=== PATIENT | female | born 1990 | race American Indian/Alaskan Native ===

== ENCOUNTER 2016-10-11 08:52 | Emergency (ER) | payer BC ==
[2016-10-11 09:04] VITALS: BMI 22.4
[2016-10-11 09:05] VITALS: BP 121/89; PULSE 82; RESP 16; TEMP 98.3; O2SAT 100
--- NOTE | 2016-10-11 09:26 | ED PDOC ---
Arrival/HPI - General Chief Complaint: Abdominal Pain Time Seen by Provider: 10/11/16 09:12 Historian: Patient - History of Present Illness Narrative History of Present Illness (Text): 10/11/16 09:17 Martina Navarro is a 26 year old female complaining of intermittent right-sided abdominal pain for two weeks. Patient states that she also experiences associated lightheadedness and nausea. Patient denies any vomiting, diarrhea, back pain, urinary symptoms, or any other complaint at this time. Patient endorses that her last normal period was the beginning of last month. PMD: None Time/Duration: > week (2 weeks) Symptom Onset: Gradual Symptom Course: Unchanged Severity Level: Mild Activities at Onset: Light Context: Home Associated Symptoms (Text): 10/11/16 11:58 Two-week history of intermittent right lower quadrant and right groin pain. There's been some nausea but no vomiting or diarrhea. No dysuria frequency urgency or hematuria. Last normal menstrual period was September 05. She states she has had some very light intermittent bleeding since then. Sexually active with no control. No vaginal discharge or bleeding. No low back pain. No fever or chills. No injury or trauma. Past Medical History - Provider Review Nursing Documentation Reviewed: Yes - Cardiac Hx Cardiac Disorders: No - Pulmonary Hx Respiratory Disorders: Yes Hx Asthma: Yes - Neurological Hx Neurological Disorder: No - HEENT Hx HEENT Disorder: No - Renal Hx Renal Disorder: No - Endocrine/Metabolic Hx Endocrine Disorders: No - Hematological/Oncological Hx Blood Disorders: No - Integumentary Hx Dermatological Disorder: No - Musculoskeletal/Rheumatological Hx Musculoskeletal Disorders: No - Gastrointestinal Hx Gastrointestinal Disorders: No - Genitourinary/Gynecological Hx Genitourinary Disorders: No - Psychiatric Hx Psychophysiologic Disorder: No Hx Substance Use: No Family/Social History - Physician Review Nursing Documentation Reviewed: Yes Family/Social History: No Known Family HX Smoking Status: Never Smoked Hx Alcohol Use: No Hx Substance Use: No Allergies/Home Meds Allergies/Adverse Reactions: Allergies tomato Allergy (Verified 10/11/16 09:04) RASH Review of Systems - Physician Review All systems were reviewed & negative as marked: Yes - Review of Systems Constitutional: absent: Fatigue, Fevers, Night Sweats Eyes: absent: Vision Changes ENT: absent: Hearing Changes Respiratory: absent: SOB Cardiovascular: absent: Chest Pain Gastrointestinal: Abdominal Pain, Nausea. absent: Constipation, Diarrhea, Vomiting Genitourinary Female: absent: Dysuria, Frequency, Hematuria, Urine Output Changes, Vaginal Discharge Musculoskeletal: absent: Back Pain, Neck Pain Skin: absent: Rash Neurological: absent: Headache, Dizziness, Focal Weakness Endocrine: absent: Polydipsia Hemo/Lymphatic: absent: Easy Bleeding Psychiatric: absent: Depression Physical Exam Vital Signs Reviewed: Yes Vital Signs Temp Pulse Resp BP Pulse Ox 10/11/16 09:05 98.3 F 82 16 121/89 100 Temperature: Afebrile Blood Pressure: Normal Pulse: Regular Respiratory Rate: Normal Appearance: Positive for: Well-Appearing, Non-Toxic, Comfortable Pain Distress: None Mental Status: Positive for: Alert and Oriented X 3 - Systems Exam Head: Present: Atraumatic, Normocephalic Pupils: Present: PERRL Extroacular Muscles: Present: EOMI Conjunctiva: Present: Normal Mouth: Present: Moist Mucous Membranes Pharnyx: No: ERYTHEMA, EXUDATE, TONSILS ENLARGED Neck: Present: Normal Range of Motion Respiratory/Chest: Present: Clear to Auscultation, Good Air Exchange. No: Respiratory Distress, Accessory Muscle Use Cardiovascular: Present: Regular Rate and Rhythm, Normal S1, S2. No: Murmurs Abdomen: Present: Tenderness (Mild RLQ tenderness), Normal Bowel Sounds. No: Distention, Peritoneal Signs, Rebound, Guarding Back: Present: Normal Inspection. No: CVA Tenderness Upper Extremity: Present: Normal Inspection. No: Cyanosis, Edema Lower Extremity: Present: Normal Inspection. No: Edema Neurological: Present: GCS=15, CN II-XII Intact, Speech Normal, Motor Func Grossly Intact Skin: Present: Warm, Dry, Normal Color. No: Rashes Psychiatric: Present: Alert, Oriented x 3, Normal Insight, Normal Concentration Medical Decision Making ED Course and Treatment: 10/11/16 09:17 Impression: 26 year old female complaining of intermittent right-sided abdominal pain for two weeks. Plan: -- Urinalysis -- Labs -- Zofran, Toradol, and IV Fluids -- Reassess and disposition Progress Notes: 10/11/16 12:28 Transvaginal ultrasound as read by the radiologist shows no acute findings. Ultrasound of the abdomen as read by the radiologist shows no evidence of appendicitis. 10/11/16 12:34 Symptoms improved. - Lab Interpretations Lab Results: 10/11/16 09:47 10/11/16 09:47 Lab Results 10/11/16 09:47: WBC 7.2, RBC 4.68, Hgb 14.2, Hct 42.3, MCV 90.4, MCH 30.3, MCHC 33.6, RDW 13.4, Plt Count 369, MPV 9.4, Gran % 53.5, Lymph % (Auto) 39.5 H, [place] % (Auto) 5.5, Eos % (Auto) 1.1 L, Baso % (Auto) 0.4, Gran # 3.85, Lymph # 2.9, [place] # 0.4, Eos # 0.1, Baso # 0.03, Sodium 140, Potassium 3.6, Chloride 102 , Carbon Dioxide 27, Anion Gap 15, BUN 12, Creatinine 0.7, Est GFR ( Amer ) > 60, Est GFR (Non-Af Amer) > 60, Random Glucose 100, Calcium 9.4, Total Bilirubin 0.8, AST 24, ALT 37, Alkaline Phosphatase 79, Total Protein 8.6 H, Albumin 4.5, Globulin 4.1, Albumin/Globulin Ratio 1.1, Lipase 108, Urine Color Yellow, Urine Appearance Sl cloudy, Urine pH 6.0, Ur Specific [place] >= 1.030, Urine Protein 30 H, Urine Glucose (UA) Negative, Urine Ketones Negative, Urine Blood Trace-intact H, Urine Nitrate Negative, Urine Bilirubin Negative, Urine Urobilinogen 1.0 H, Ur Leukocyte Esterase Trace H, Urine RBC 0 - 2, Urine WBC 2 - 5, Ur Epithelial Cells 4 - 5, Urine Bacteria Mod, Urine HCG, Qual Negative I have reviewed the lab results: Yes - RAD Interpretation Radiology Orders: 10/11/16 09:33 PELVIS ULTRASOUND [US] Routine 10/11/16 10:08 ABDOMEN LIMITED [US] Stat 10/11/16 10:09 TRANSVAGINAL [US] Stat - Medication Orders Current Medication Orders: Discontinued Medications Sodium Chloride (Sodium Chloride 0.9%) 1,000 mls @ 1,000 mls/hr IV .Q1H STA Stop: 10/11/16 10:32 Last Admin: 10/11/16 09:49 Dose: 1,000 MLS/HR eMAR Start Stop Document 10/11/16 09:49 SE (Rec: 10/11/16 09:49 SE [id number]) Intravenous Solution Start Date 10/11/16 Start Time 09:49 Ketorolac Tromethamine (Toradol) 30 mg IVP STAT STA Stop: 10/11/16 09:34 Last Admin: 10/11/16 09:45 Dose: 30 MG IVP Administration Document 10/11/16 09:45 SE (Rec: 10/11/16 09:45 SE [id number]) Charges for Administration # of IVP Administrations 1 Ondansetron HCl (Zofran Inj) 4 mg IVP STAT STA Stop: 10/11/16 09:34 Last Admin: 10/11/16 09:45 Dose: 4 MG IVP Administration Document 10/11/16 09:45 SE (Rec: 10/11/16 09:45 SE [id number]) Charges for Administration # of IVP Administrations 1 - Scribe Statement The provider has reviewed the documentation as recorded by the Bert Wood Provider Scribe Attestation: All medical record entries made by the Kadieibtosha were at my direction and personally dictated by me. I have reviewed the chart and agree that the record accurately reflects my personal performance of the history, physical exam, medical decision making, and the department course for this patient. I have also personally directed, reviewed, and agree with the discharge instructions and disposition. Disposition/Present on Arrival - Present on Arrival Any Indicators Present on Arrival: No History of DVT/PE: No History of Uncontrolled Diabetes: No Urinary Catheter: No History of Decub. Ulcer: No History Surgical Site Infection Following: None - Disposition Have Diagnosis and Disposition been Completed?: Yes Diagnosis: Abdominal pain, Dysmenorrhea Disposition: HOME/ ROUTINE Disposition Time: 12:29 Patient Plan: Discharge Patient Problems: Current Active Problems Problem Status Diagnosed Abdominal pain Acute Dysmenorrhea Acute Condition: IMPROVED Discharge Instructions (ExitCare): Dysmenorrhea (ED), Acute Abdominal Pain (ED) Additional Instructions: Follow-up with PMD and [facility]. Follow up in ER as needed. Prescriptions: Naproxen [Naprosyn] 500 mg PO BID #14 tab Referrals: PCP,NO [Primary Care Provider] - Follow up with primary
[2016-10-11] MEDS ORDERED: Sodium Chloride 0.9% 1,000 ML IV STA (09:33)
[2016-10-11 09:49] LABS: ADD MANUAL DIFF? NO
[2016-10-11 09:54] LABS: BASO # 0.03 K/mm3 (0.0-2.0); BASO % 0.4 % (0.0-3.0); EOS # 0.1 (0.0-0.7); EOS % 1.1 % (1.5-5.0); GRAN # 3.85 (1.4-6.5); GRAN % 53.5 % (50.0-68.0); HEMATOCRIT 42.3 % (36.0-48.0); LYMPH # 2.9 (1.2-3.4); LYMPH % 39.5 % (22.0-35.0); MEAN CELL VOLUME 90.4 fL (80.0-105.0); MEAN CORPUSCULAR HEMOGLOBIN 30.3 pg (25.0-35.0); MEAN CORPUSCULAR HGB CONC 33.6 g/dl (31.0-37.0); MEAN PLATELET VOLUME 9.4 fl (7.0-11.0); MONO # 0.4 (0.1-0.6); MONO % 5.5 % (1.0-6.0); PLATELET COUNT 369 10^3/uL (120.0-450.0); RED CELL DISTRIBUTION WIDTH 13.4 % (11.5-14.5); WHITE BLOOD COUNT 7.2 10^3/ul (4.5-11.0)
[2016-10-11 09:55] LABS: URINE BILIRUBIN NEGATIVE (NEGATIVE); URINE BLOOD TRACE-INTACT (NEGATIVE); URINE COLOR YELLOW (YELLOW); URINE GLUCOSE (UA) NEGATIVE (NEGATIVE); URINE KETONE NEGATIVE (NEGATIVE); URINE LEUKOCYTE ESTERASE TRACE Leu/uL (NEGATIVE); URINE PROTEIN 30 mg/dL (<30 mg/dL)
[2016-10-11 10:00] LABS: ALB/GLOB RATIO 1.1 (1.1-1.8); ALKALINE PHOSPHATASE 79 U/L (38-133); ALT/SGPT 37 U/L (7-56); AST/SGOT 24 U/L (15-39); BILIRUBIN,TOTAL 0.8 mg/dL (0.2-1.3); BLOOD UREA NITROGEN 12 mg/dL (7-21); CALCIUM 9.4 mg/dL (8.4-10.5); CARBON DIOXIDE 27 mmol/L (21-33); CHLORIDE 102 mmol/L (98-107); GFR AFRICAN-AMERICAN > 60; GLUCOSE,RANDOM 100 mg/dL (70-110); LIPASE 108 U/L (23-300); POTASSIUM 3.6 mmol/L (3.6-5.0); SODIUM 140 mmol/L (132-148); TOTAL PROTEIN 8.6 g/dL (5.8-8.3)
[2016-10-11 10:10] LABS: URINE APPEARANCE SL CLOUDY (CLEAR)
[2016-10-11 10:13] LABS: URINE BACTERIA MOD (NEG); URINE RBC 0 - 2 /hpf (0-2)
--- NOTE | 2016-10-11 12:20 | US ---
PROCEDURE: Limited abdomen HISTORY: R/O AP COMPARISON: TECHNIQUE: Ultrasound of the right lower quadrant was performed rule out appendicitis FINDINGS: Normal bowel loops are seen in this area with peristalsis. There is no evidence of a distended appendix IMPRESSION: Negative study
--- NOTE | 2016-10-11 12:22 | US ---
HISTORY: right ovarian cyst COMPARISON: None available. TECHNIQUE: FINDINGS: UTERUS: Measures 9.8 x 4.2 x 5.3 cm. Normal in size and appearance. No fibroid or other mass lesion seen. ENDOMETRIUM: Measures 5 mm in diameter. Unremarkable. CERVIX: No cervical abnormality identified. RIGHT OVARY: Measures 3.1 x 2.7 x 2.0 cm. No solid mass. Normal flow. LEFT OVARY: Measures 2.7 x 1.9 x 1.8 cm. No solid mass. Normal flow. There is a 1 cm simple cyst FREE FLUID: No significant free fluid noted. OTHER FINDINGS: None. IMPRESSION: Unremarkable pelvic ultrasound.
--- NOTE | 2016-10-13 13:33 | US ---
HISTORY: RLQ pain, R/O appendicitis, ovarian cyst. COMPARISON: None available. TECHNIQUE: Transabdominal and transvaginal pelvic ultrasound was performed. FINDINGS: UTERUS: Measures 9.8 x 4.2 x 5.3 cm. Anteverted, normal in size and appearance. No fibroid or other mass lesion seen. ENDOMETRIUM: Measures 5.1 mm in diameter. Normal in appearance. CERVIX: No cervical abnormality identified. RIGHT OVARY: Measures 3.1 x 2.7 x 2.0 cm. No solid mass. Normal flow. LEFT OVARY: Measures 2.7 x 1.9 x 1.8 cm. No solid mass. Normal flow. FREE FLUID: No significant free fluid noted. OTHER FINDINGS: None. IMPRESSION: Normal pelvic ultrasound.
== END 2016-10-11 12:36 | disposition home or self-care (01) ==
LOC: ED 08:52
DX: N94.6 Dysmenorrhea, unspecified (principal); R10.9 Unspecified abdominal pain
CPT/HCPCS: 76705; 76830; 76856; 80053; 81001; 83690; 84703; 85025; 87086; 96374; 96375; 99285; J1885; J2405; J7040

== ENCOUNTER 2017-07-18 22:33 | Emergency (ER) | payer BC ==
[2017-07-18 22:33] VITALS: BMI 22.4
[2017-07-18 23:10] VITALS: TEMP 97.9
[2017-07-18] MEDS ORDERED: Sodium Chloride 0.9% 1,000 ML IV STA (23:29)
[2017-07-19 01:34] LABS: BASO # 0.01 K/mm3 (0.0-2.0); BASO % 0.1 % (0.0-3.0); EOS % 0.1 % (1.5-5.0); GRAN # 11.6 (1.4-6.5); GRAN % 83.3 % (50.0-68.0); HEMOGLOBIN 12.7 g/dL (12.0-16.0); LYMPH # 1.3 (1.2-3.4); LYMPH % 9.1 % (22.0-35.0); MEAN CELL VOLUME 90.3 fl (80.0-105.0); MEAN CORPUSCULAR HGB CONC 33.2 g/dl (31.0-37.0); MEAN PLATELET VOLUME 9.5 fl (7.0-11.0); MONO % 7.4 % (1.0-6.0); RBC 4.23 10^6/uL (3.5-6.1); RED CELL DISTRIBUTION WIDTH 13.7 % (11.5-14.5); WHITE BLOOD COUNT 13.9 10^3/ul (4.5-11.0)
[2017-07-19 01:43] LABS: ALB/GLOB RATIO 1.3 (1.1-1.8); ALT/SGPT 27 U/L (7-56); AST/SGOT 25 U/L (14-36); BLOOD UREA NITROGEN 10 mg/dL (7-21); CALCIUM 8.9 mg/dL (8.4-10.5); GFR AFRICAN-AMERICAN > 60; GFR NON-AFRICAN AMERICAN > 60; LIPASE 42 U/L (23-300)
--- NOTE | 2017-07-19 01:43 | ED PDOC ---
Arrival/HPI - General Historian: Patient - General Chief Complaint: Abdominal Pain Time Seen by Provider: 07/18/17 23:29 - History of Present Illness Narrative History of Present Illness (Text): 07/19/17 01:40 27yo female who present with complaint of abdominal pain, headache and dizziness. The patient states abdominal pain started few days ago and headache and dizziness started today. She notes previous history of similar headache. states her LMP was July 04. Denies nausea, vomiting, diarrhea, constipation, focal weakness, sick contact, urinary symptoms, back pain, any other complaint. (Louie,Happiness A) Past Medical History - Provider Review Nursing Documentation Reviewed: Yes - Infectious Disease Hx of Infectious Diseases: None - Cardiac Hx Cardiac Disorders: No - Pulmonary Hx Respiratory Disorders: Yes Hx Asthma: Yes - Neurological Hx Neurological Disorder: No - HEENT Hx HEENT Disorder: No - Renal Hx Renal Disorder: No - Endocrine/Metabolic Hx Endocrine Disorders: No - Hematological/Oncological Hx Blood Disorders: No - Integumentary Hx Dermatological Disorder: No - Musculoskeletal/Rheumatological Hx Musculoskeletal Disorders: No - Gastrointestinal Hx Gastrointestinal Disorders: No - Genitourinary/Gynecological Hx Genitourinary Disorders: No - Psychiatric Hx Psychophysiologic Disorder: No Hx Substance Use: No Family/Social History - Physician Review Nursing Documentation Reviewed: Yes Family/Social History: Unknown Family HX Smoking Status: Never Smoked Hx Alcohol Use: No Hx Substance Use: No Allergies/Home Meds Allergies/Adverse Reactions: Allergies tomato Allergy (Verified 07/18/17 23:06) RASH Review of Systems - Physician Review All systems were reviewed & negative as marked: Yes - Review of Systems Constitutional: Normal Eyes: Normal ENT: Normal Respiratory: Normal Cardiovascular: Normal Gastrointestinal: Abdominal Pain. absent: Constipation, Diarrhea, Nausea, Vomiting, Hematemesis Genitourinary Female: Normal Musculoskeletal: Normal Skin: Normal Neurological: Headache, Dizziness. absent: Focal Weakness Endocrine: Normal Hemo/Lymphatic: Normal Psychiatric: Normal Physical Exam Vital Signs Reviewed: Yes Temperature: Afebrile Blood Pressure: Normal Pulse: Regular Respiratory Rate: Normal Appearance: Positive for: Well-Appearing, Non-Toxic, Comfortable Pain Distress: None Mental Status: Positive for: Alert and Oriented X 3 - Systems Exam Head: Present: Atraumatic, Normocephalic Pupils: Present: PERRL Extroacular Muscles: Present: EOMI Conjunctiva: Present: Normal Mouth: Present: Moist Mucous Membranes Neck: Present: Normal Range of Motion Respiratory/Chest: Present: Clear to Auscultation, Good Air Exchange. No: Respiratory Distress, Accessory Muscle Use Cardiovascular: Present: Regular Rate and Rhythm, Normal S1, S2. No: Murmurs Abdomen: Present: Tenderness (Diffuse), Normal Bowel Sounds, Other (Soft). No: Distention, Peritoneal Signs, Rebound, Guarding, McBurney's Point Tender, Rovsing's Sign Present Back: Present: Normal Inspection Upper Extremity: Present: Normal Inspection. No: Cyanosis, Edema Lower Extremity: Present: Normal Inspection. No: Edema Neurological: Present: GCS=15, CN II-XII Intact, Speech Normal, Normal Sensory Function, Normal Cerebellar Funct, Memory Normal, Other (No focal neurological deficit) Skin: Present: Warm, Dry, Normal Color. No: Rashes Psychiatric: Present: Alert, Oriented x 3, Normal Insight, Normal Concentration Vital Signs Temp Pulse Resp BP Pulse Ox 07/19/17 02:27 84 17 121/73 97 07/18/17 23:07 97.9 F 78 18 105/68 98 Medical Decision Making ED Course and Treatment: 07/19/17 02:48 PT presented for stated history. On re evaluation she was smiling states she feels better. Mild leukocytosis was noted. She also have UTI. Result was DW the pt and she states she ws recently treated for UTI cause by E. coli and staphy by her OB. States she doesn't know the name of the abx, but she was still feeling the same ways she was feeling prior to taking the medication. She will be treated and DC home with Macrobid. Advised to drink pknety of fluid rest. Notified that she will be call if urine culture doesn't show sensitivity to macrobid. TRT ED or any new or worsening symptoms. (Diru,Happiness A) - Lab Interpretations Lab Results: 07/19/17 01:05 07/19/17 01:05 Lab Results 07/19/17 02:20: Urine Color Yellow, Urine Appearance Sl cloudy, Urine pH 6.0, Ur Specific [place] 1.025, Urine Protein Negative, Urine Glucose (UA) Negative, Urine Ketones Negative, Urine Blood Negative, Urine Nitrate Positive H, Urine Bilirubin Negative, Urine Urobilinogen 0.2, Ur Leukocyte Esterase Negative, Urine RBC 0 - 2, Urine WBC 1 - 3, Ur Epithelial Cells 4 - 5, Urine Bacteria Many 07/19/17 02:05: Influenza Typ A,B (EIA) Negative for flu a/b 07/19/17 01:05: Sodium 138, Potassium 3.4 L, Chloride 103, Carbon Dioxide 23, Anion Gap 15, BUN 10, Creatinine 0.6 L, Est GFR ( Amer) > 60, Est GFR ( Non-Af Amer) > 60, Random Glucose 159 H, Calcium 8.9, Total Bilirubin 0.5, AST 25, ALT 27, Alkaline Phosphatase 63, Total Protein 7.0, Albumin 4.0, Globulin 3.0, Albumin/Globulin Ratio 1.3, Lipase 42 07/19/17 01:05: PT 13.5 H, INR 1.18 H, APTT 27.2 07/19/17 01:05: WBC 13.9 H D, RBC 4.23, Hgb 12.7, Hct 38.2, MCV 90.3, MCH 30.0, MCHC 33.2, RDW 13.7, Plt Count 300, MPV 9.5, Gran % 83.3 H, Lymph % (Auto) 9.1 L , [place] % (Auto) 7.4 H, Eos % (Auto) 0.1 L, Baso % (Auto) 0.1, Gran # 11.60 H, Lymph # 1.3, [place] # 1.0 H, Eos # 0.0, Baso # 0.01 - Medication Orders Current Medication Orders: Discontinued Medications Famotidine (Pepcid) 20 mg IVP STAT STA Stop: 07/18/17 23:30 Last Admin: 07/19/17 00:59 Dose: 20 mg IVP Administration Document 07/19/17 00:59 Calin (Rec: 07/19/17 02:08 Calin [id number]) Charges for Administration # of IVP Administrations 1 Sodium Chloride (Sodium Chloride 0.9%) 1,000 mls @ 1,000 mls/hr IV .Q1H STA Stop: 07/19/17 00:28 Last Admin: 07/19/17 00:22 Dose: 1,000 mls/hr eMAR Start Stop Document 07/19/17 00:22 R (Rec: 07/19/17 00:22 JMR [id number]) Intravenous Solution Start Date 07/19/17 Start Time 00:22 End Date 07/19/17 End time 01:48 Total Infusion Time 86 Metoclopramide HCl (Reglan) 10 mg IVP STAT STA Stop: 07/18/17 23:30 Last Admin: 07/19/17 00:59 Dose: 10 mg IVP Administration Document 07/19/17 00:59 SULAIMAN (Rec: 07/19/17 00:59 R [id number]) Charges for Administration # of IVP Administrations 1 Nitrofurantoin Macrocrystals (Macrobid) 100 mg PO ONCE STA Stop: 07/19/17 02:44 Last Admin: 07/19/17 03:06 Dose: 100 mg Potassium Chloride (K-Dur 20 Meq Er Tab) 20 meq PO STAT STA Stop: 07/19/17 01:46 Last Admin: 07/19/17 02:28 Dose: 20 meq Disposition/Present on Arrival - Present on Arrival Any Indicators Present on Arrival: No History of DVT/PE: No History of Uncontrolled Diabetes: No Urinary Catheter: No History of Decub. Ulcer: No History Surgical Site Infection Following: None - Disposition Have Diagnosis and Disposition been Completed?: Yes Disposition Time: 02:55 Patient Plan: Discharge - Disposition Diagnosis: Dizziness, UTI (urinary tract infection), Abdominal pain, Headache Disposition: HOME/ ROUTINE Condition: STABLE Discharge Instructions (ExitCare): Urinary Tract Infection in Women (ED) Additional Instructions: Follow up with your Doctor Drink plenty of fluid and rest Return to ED for any new or worsening symptoms Prescriptions: Nitrofurantoin Macrocrystals [Macrobid] 100 mg PO BID #14 cap Referrals: [facility] at [facility] [Outside] - Follow up with primary Forms: uTaP (Bulgarian)
[2017-07-19] MEDS ORDERED: Potassium Chloride 20 mEq ER Tab PO STA (01:45)
[2017-07-19 02:25] LABS: INR 1.18 (0.93-1.08); PARTIAL THROMBOPLASTIN TIME 27.2 Seconds (25.1-36.5); PROTHROMBIN TIME 13.5 SECONDS (9.4-12.5)
[2017-07-19 02:27] VITALS: BP 121/73; PULSE 84; RESP 17; O2SAT 97
[2017-07-19 02:33] LABS: URINE BILIRUBIN NEGATIVE (NEGATIVE); URINE BLOOD NEGATIVE (NEGATIVE); URINE GLUCOSE (UA) NEGATIVE (NEGATIVE); URINE LEUKOCYTE ESTERASE NEGATIVE Leu/uL (NEGATIVE); URINE NITRATE POSITIVE (NEGATIVE); URINE PROTEIN NEGATIVE mg/dL (<30 mg/dL); URINE UROBILINOGEN 0.2 E.U./dL (<1 E.U./dL)
[2017-07-19 02:37] LABS: URINE APPEARANCE SL CLOUDY (CLEAR); URINE COLOR YELLOW (YELLOW)
[2017-07-19 02:58] LABS: URINE BACTERIA MANY (NEG); URINE RBC 0 - 2 /hpf (0-2)
== END 2017-07-19 03:09 | disposition home or self-care (01) ==
LOC: ED 22:33
DX: N39.0 Urinary tract infection, site not specified (principal); R10.9 Unspecified abdominal pain; R51 Headache; R42 Dizziness and giddiness
CPT/HCPCS: 80053; 81001; 83690; 85025; 85610; 85730; 87086; 87804; 96361; 96374; 96375; 99283; J2765; J7040

== ENCOUNTER 2018-06-09 00:40 | Emergency (ER) | payer BC ==
[2018-06-09 00:50] VITALS: RESP 18; BMI 24.4
--- NOTE | 2018-06-09 01:07 | ED PDOC ---
Arrival/HPI - General Historian: Patient - History of Present Illness Narrative History of Present Illness (Text): 06/09/18 01:04 28 year old female, with no significant past medical history, presents to the emergency department with dysuria and vaginal discomfort and discharge x 4 days. Patient states discharge is "thick and creamy". Patient informs having unprotected sex a week and a half ago, and has some concern for STI. Patient saw her OBGYN yesterday, who prescribed her medication for a yeast infection that she is picking up at the pharmacy tomorrow. She states she was not tested for UTI or STI. LMP 2 weeks ago. Denies fevers, chills, abdominal pain, back pain, nausea, vomiting, diarrhea, back pain, hematuria, vaginal bleeding, or any other complaints. Time/Duration: < week (4 days) Symptom Course: Unchanged Quality: Pressure <Dara Han - Last Filed: 06/09/18 16:48> <Arnel Mackey - Last Filed: 06/10/18 17:03> - General Chief Complaint: Female Genitourinary Time Seen by Provider: 06/09/18 00:52 Past Medical History - Provider Review Nursing Documentation Reviewed: Yes - Infectious Disease Hx of Infectious Diseases: None - Cardiac Hx Hypertension: Yes - Pulmonary Hx Asthma: Yes - Neurological Hx Neurological Disorder: No - HEENT Hx HEENT Disorder: No - Renal Hx Renal Disorder: No - Endocrine/Metabolic Hx Endocrine Disorders: No - Hematological/Oncological Hx Blood Disorders: No - Integumentary Hx Dermatological Disorder: No - Musculoskeletal/Rheumatological Hx Musculoskeletal Disorders: No - Gastrointestinal Hx Gastrointestinal Disorders: No - Genitourinary/Gynecological Hx Genitourinary Disorders: No - Psychiatric Hx Psychophysiologic Disorder: No Hx Substance Use: No <Dara Han - Last Filed: 06/09/18 16:48> Family/Social History - Physician Review Nursing Documentation Reviewed: Yes Family/Social History: No Known Family HX Smoking Status: Never Smoked Hx Alcohol Use: Yes Frequency of alcohol use: Socially Hx Substance Use: No <Dara Han - Last Filed: 06/09/18 16:48> Allergies/Home Meds <Dara Han - Last Filed: 06/09/18 16:48> <Arnel Mackey - Last Filed: 06/10/18 17:03> Allergies/Adverse Reactions: Allergies tomato Allergy (Verified 07/18/17 23:06) RASH Review of Systems - Physician Review All systems were reviewed & negative as marked: Yes - Review of Systems Constitutional: Normal. absent: Fevers, Night Sweats Eyes: Normal ENT: Normal. absent: Sore Throat, Sinus Congestion Respiratory: Normal. absent: SOB, Cough Cardiovascular: Normal. absent: Chest Pain, Palpitations Gastrointestinal: Normal. absent: Abdominal Pain, Diarrhea, Nausea, Vomiting Genitourinary Female: Dysuria, Frequency, Vaginal Discharge. absent: Hematuria, Urine Output Changes, Vaginal Bleeding Musculoskeletal: Normal. absent: Back Pain Skin: Normal. absent: Rash Neurological: Normal. absent: Headache, Dizziness Endocrine: Normal Hemo/Lymphatic: Normal Psychiatric: Normal <Dara Han - Last Filed: 06/09/18 16:48> Physical Exam Vital Signs Reviewed: Yes Vital Signs Temp Pulse Resp BP Pulse Ox 06/09/18 00:50 97.9 F 97 H 18 131/87 98 Temperature: Afebrile Blood Pressure: Normal Pulse: Tachycardic Respiratory Rate: Normal Appearance: Positive for: Well-Appearing, Non-Toxic, Comfortable Pain Distress: None Mental Status: Positive for: Alert and Oriented X 3 - Systems Exam Head: Present: Atraumatic, Normocephalic Pupils: Present: PERRL Extroacular Muscles: Present: EOMI Conjunctiva: Present: Normal Mouth: Present: Moist Mucous Membranes Neck: Present: Normal Range of Motion Respiratory/Chest: Present: Clear to Auscultation, Good Air Exchange. No: Respiratory Distress, Accessory Muscle Use Cardiovascular: Present: Regular Rate and Rhythm, Normal S1, S2, Peripheal Pulses Present. No: Murmurs Abdomen: Present: Normal Bowel Sounds. No: Tenderness, Distention, Peritoneal Signs Genitourinary/Pelvic Exam: Present: Normal External Genitalia, Vaginal Discharge (small amount of white discharge), Cervical os Closed. No: Vaginal Bleeding, Vaginal Lesions, Adenexal Tenderness, Cervical Motion Tendernes, Odor Back: Present: Normal Inspection. No: CVA Tenderness Upper Extremity: Present: Normal Inspection, Normal ROM, NORMAL PULSES, Neurovascularly Intact, Capillary Refill < 2s. No: Cyanosis, Edema Lower Extremity: Present: Normal Inspection, NORMAL PULSES, Normal ROM, Neurovascularly Intact, Capillary Refill < 2 s. No: Edema Neurological: Present: GCS=15, CN II-XII Intact, Speech Normal, Motor Func Grossly Intact, Normal Sensory Function, Gait Normal Skin: Present: Warm, Dry, Normal Color. No: Rashes Psychiatric: Present: Alert, Oriented x 3, Normal Insight, Normal Concentration, Normal Affect, Normal Mood <Dara Han - Last Filed: 06/09/18 16:48> Vital Signs Temp Pulse Resp BP Pulse Ox 06/09/18 02:30 98 F 90 18 128/72 100 06/09/18 00:50 97.9 F 97 H 18 131/87 98 <Arnel Mackey - Last Filed: 06/10/18 17:03> Medical Decision Making ED Course and Treatment: 06/09/18 01:10 Initial Plan: -- Chlamydia/GC -- Urine Cultures -- Urinalysis -- Reassess and disposition Prior Visits: Notes and results from previous visits were reviewed. Progress Notes: Patient refusing treatment for GC/Chlamydia. States she would rather wait for the results and return for treatment if necessary. Will give prescription for Macrobid and recommend followup with OBGYN. Plan of care discussed with patient, and strict instructions given regarding prescriptions, importance of follow up, and signs to return to Emergency Depart ment, to include fevers, chills, back pain, N/V, abdominal pain or any other new/worsening symptoms. Patient verbalizes understanding of discussion. Patient A&Ox3, ambulating with steady gait, stable for discharge home. - Lab Interpretations Lab Results: Lab Results 06/09/18 01:10: Urine Color Yellow, Urine Appearance Sl cloudy, Urine pH 6.0, Ur Specific [place] 1.020, Urine Protein Negative, Urine Glucose (UA) Negative, Urine Ketones Negative, Urine Blood Negative, Urine Nitrate Negative, Urine Bilirubin Negative, Urine Urobilinogen 0.2, Ur Leukocyte Esterase Moderate H, Urine RBC 0 - 2, Urine WBC 5 - 10, Ur Epithelial Cells 1 - 3, Amorphous Sediment Small, Urine Bacteria Few I have reviewed the lab results: Yes <Dara Han - Last Filed: 06/09/18 16:48> - Lab Interpretations Lab Results: Lab Results 06/09/18 01:10: Urine Color Yellow, Urine Appearance Sl cloudy, Urine pH 6.0, Ur Specific [place] 1.020, Urine Protein Negative, Urine Glucose (UA) Negative, Urine Ketones Negative, Urine Blood Negative, Urine Nitrate Negative, Urine Bilirubin Negative, Urine Urobilinogen 0.2, Ur Leukocyte Esterase Moderate H, Urine RBC 0 - 2, Urine WBC 5 - 10, Ur Epithelial Cells 1 - 3, Amorphous Sediment Small, Urine Bacteria Few - Medication Orders Current Medication Orders: Discontinued Medications Azithromycin (Zithromax) 1,000 mg PO STAT STA; Protocol Stop: 06/09/18 02:02 Last Admin: 06/09/18 02:30 Dose: 1,000 mg Ceftriaxone Sodium (Rocephin) 250 mg IM STAT STA; Protocol Stop: 06/09/18 02:02 Last Admin: 06/09/18 02:23 Dose: Not Given Non-Admin Reason: Patient Refused IM Administration Charges Document 06/09/18 02:23 (Rec: 06/09/18 02:23 [id number]) Charges for Administration # of IM Administrations 0 Nitrofurantoin Macrocrystals (Macrobid) 100 mg PO STAT STA; Protocol Stop: 06/09/18 02:03 Last Admin: 06/09/18 02:32 Dose: 100 mg <Arnel Mackey - Last Filed: 06/10/18 17:03> - Scribe Statement The provider has reviewed the documentation as recorded by the Bert Peralta Provider Scribe Attestation: All medical record entries made by the Scribe were at my direction and personally dictated by me. I have reviewed the chart and agree that the record accurately reflects my personal performance of the history, physical exam, medical decision making, and the department course for this patient. I have also personally directed, reviewed, and agree with the discharge instructions and disposition. <Dara Han - Last Filed: 06/09/18 16:48> - PA / MOP MAN / Resident Statement / has reviewed & agrees with the documentation as recorded. <Arnel Mackey - Last Filed: 06/10/18 17:03> Disposition/Present on Arrival - Present on Arrival Any Indicators Present on Arrival: No History of DVT/PE: No History of Uncontrolled Diabetes: No Urinary Catheter: No History of Decub. Ulcer: No History Surgical Site Infection Following: None - Disposition Have Diagnosis and Disposition been Completed?: Yes Disposition Time: 02:00 Patient Plan: Discharge <Dara Han - Last Filed: 06/09/18 16:48> <Arnel Mackey - Last Filed: 06/10/18 17:03> - Disposition Diagnosis: UTI (urinary tract infection) Disposition: HOME/ ROUTINE Condition: GOOD Discharge Instructions (ExitCare): Urinary Tract Infections in Adults Additional Instructions: Take antibiotic every 12 hours for one week Followup with hand clerical verifier within 2 days Followup with primary doctor within 2 days Return to ER for any new/worsening symptoms Prescriptions: Nitrofurantoin Macrocrystals [Macrobid] 100 mg PO Q12H #13 cap Referrals: [facility] [place]] - [facility]Outside] - Follow up with primary Caroline Florian MD [Medical Doctor] - Follow up with primary Forms: [employer] (Swiss), WORK NOTE
[2018-06-09 01:49] LABS: URINE BILIRUBIN NEGATIVE (NEGATIVE); URINE BLOOD NEGATIVE (NEGATIVE); URINE GLUCOSE (UA) NEGATIVE (NEGATIVE); URINE LEUKOCYTE ESTERASE MODERATE Leu/uL (NEGATIVE); URINE PROTEIN NEGATIVE mg/dL (<30 mg/dL); URINE UROBILINOGEN 0.2 E.U./dL (<1 E.U./dL)
[2018-06-09 01:51] LABS: URINE APPEARANCE SL CLOUDY (CLEAR); URINE COLOR YELLOW (YELLOW)
[2018-06-09] MEDS ORDERED: cefTRIAXone (Rocephin) 250 mg Inj IM STA (02:01)
[2018-06-09 02:09] LABS: URINE AMORPHOUS SEDIMENT SMALL; URINE BACTERIA FEW (NEG); URINE RBC 0 - 2 /hpf (0-2)
[2018-06-09 02:34] VITALS: BP 128/72; PULSE 90; TEMP 98; O2SAT 100
== END 2018-06-09 02:34 | disposition home or self-care (01) ==
LOC: ED 00:40
DX: N39.0 Urinary tract infection, site not specified (principal); I10 Essential (primary) hypertension